=== PATIENT | female | born 1945 | race Caucasian/White ===

== ENCOUNTER 2016-08-17 22:13 | Emergency (ER) | payer MEDICAID, OTHER ==
[~2016-08-17] VITALS: Ht 160 cm; Wt 89.0 kg
[~2016-08-17 22:13] MED LIST: IBUP-1008
[2016-08-17] MEDS ORDERED: KETOROLAC 30MG/ML VIAL IM ONE (23:30)
[2016-08-18 01:00] VITALS: BP 132/76
== END 2016-08-18 02:10 | disposition home or self-care (01) ==
LOC: ER 22:13
DX: S39.012A Strain of muscle, fascia and tendon of lower back, initial encounter (principal); R07.89 Other chest pain; M54.2 Cervicalgia; Z88.6 Allergy status to analgesic agent; Z98.51 Tubal ligation status; W01.0XXA Fall on same level from slipping, tripping and stumbling without subsequent striking against object, initial encounter; Y93.89 Activity, other specified; Y92.89 Other specified places as the place of occurrence of the external cause; Y99.8 Other external cause status
CPT/HCPCS: 71010; 72070; 72100; 72125; 73562; 96372; 99284; J1885; Z7610